=== PATIENT | female | born 1960 | race Caucasian/White ===

== ENCOUNTER 2016-12-16 10:58 | Day surgery (SDC) | payer BC ==
[~2016-12-16 10:58] MED LIST: ATENOLOL50 MG PO; CALCIUM 600 PO; GLUCOSAMINE500 MG PO; MULTIPLE VITAMIN PO; RANITIDINE HCL150 MG PO
--- NOTE | 2016-12-16 13:51 | Provider's Discharge Care Plan ---
Problem, Goal, Plan Problem List 1. Colon polyp 2. Diverticulosis
--- NOTE | 2016-12-16 13:51 | Provider's Discharge Care Plan ---
Problem, Goal, Plan Problem List 1. Colon polyp 2. Diverticulosis
--- NOTE | 2016-12-16 14:19 | OPERATIVE REPORT ---
DATE OF SURGERY: 12/16/2016 SURGEON: Jack Smith MD PREOPERATIVE DIAGNOSIS: 1. History of colon polyps POSTOPERATIVE DIAGNOSES: 1. Rectal polyp 2. Diverticulosis PROCEDURE PERFORMED: 1. Colonoscopy with forceps polypectomy ANESTHESIA: Total IV general. INDICATIONS: The patient is a 56-year-old woman with previous adenomatous polyp. SURGICAL TECHNIQUE: The patient was taken to the endoscopy suite, where total IV general was administered and the patient was placed in the left lateral decubitus position. A well-lubricated colonoscope was advanced the length colon under direct vision. The cecum and ileocecal valve were visualized. Multiple diverticula were seen in the sigmoid colon. On withdrawal, there was a 3 mm sessile polyp at 15 cm at the top of the rectum. Grossly this is most likely a hyperplastic polyp. This was removed with a single bite of the biopsy forceps. The rest of the colonoscopy was negative, including a retroflexed view and a digital exam of the anus. The patient left in good condition, and no intraoperative complications were encountered.
== END 2016-12-16 14:55 | disposition home or self-care (01) ==
LOC: OR SRH 10:58 → SCU SRH 11:01
PROVIDERS: Surgery
PROC: 0DBP8ZX Excision of Rectum, Via Natural or Artificial Opening Endoscopic, Diagnostic (ICD-10-PCS; principal; 2016-12-16 13:00)
DX: Z12.11 Encounter for screening for malignant neoplasm of colon (principal); K62.1 Rectal polyp; K57.30 Diverticulosis of large intestine without perforation or abscess without bleeding; I10 Essential (primary) hypertension